=== PATIENT | female | born 1990 | race Caucasian/White ===

== ENCOUNTER 2021-01-03 10:03 | Emergency (ER) | payer OTHER ==
[~2021-01-03] VITALS: Ht 165.1 cm; Wt 75.8 kg
[2021-01-03 10:20] VITALS: BP 129/76
--- NOTE | 2021-01-03 10:31 | PHYS DOC ---
Past History Alcohol Use: None (LACEHLLE CARDENAS APRN) General Adult EDM: Chief Complaint: CHEST PAIN HPI: HPI: Patient is a 30-year-old female who presents to the ER today for chest pain. Chest pain started in October but worsened last night. Patient believes that chest pain was due to her control and so she had her control removed. She also thought maybe it was due to her hypothyroidism. She saw her asset card clerk and had a negative work-up. Location of her chest pain is substernal and radiates to her left breast. She describes the pain as an ache/palpitation. She rates the pain 6 out of 10. No alleviating or aggrav ating factors. Patient is also reporting mild lightheadedness. Patient denies shortness of breath, abdominal pain, cough, fevers. Her vital signs are stable and she is in no acute distress. (LACHELLE CARDENAS APRN) Review of Systems: Review of Systems: 14 body systems of the review of systems have been reviewed. See HPI for pertinent positive and negative responses, otherwise all other systems are negative, nonpertinent or noncontributory (LACHELLE CARDENAS APRN) Physical Exam: PE: Constitutional: Well developed, well nourished, no acute distress, non-toxic appearance. [] HENT: Normocephalic, atraumatic Eyes: PERRL, conjunctiva normal, no discharge. [] Neck: Normal range of motion, no stridor Cardiovascular:Heart rate regular rhythm, no murmur [] Lungs & Thorax: Bilateral breath sounds clear to auscultation [] Abdomen: Bowel sounds normal, soft, no tenderness, no masses, no pulsatile masses. [] Skin: Warm, dry, no erythema, no rash. [] Back: Normal range of motion Extremities: No tenderness, no cyanosis, no clubbing, ROM intact, no edema. [] Neurologic: Alert and oriented X 3, normal motor function, normal sensory function, no focal deficits noted. [] Psychologic: Affect normal, judgement normal, mood normal. [] (LACHELLE CARDENAS APRN) Current Patient Data: Labs: Laboratory Tests Test 01/03/21 10:57 White Blood Count 3.5 x10^3/uL Red Blood Count 4.39 x10^6/uL Hemoglobin 13.7 g/dL Hematocrit 40.1 % Mean Corpuscular Volume 91 fL Mean Corpuscular Hemoglobin 31 pg Mean Corpuscular Hemoglobin Concent 34 g/dL Red Cell Distribution Width 12.5 % Platelet Count 173 x10^3/uL Neutrophils (%) (Auto) 54 % Lymphocytes (%) (Auto) 36 % Monocytes (%) (Auto) 9 % Eosinophils (%) (Auto) 1 % Basophils (%) (Auto) 1 % Neutrophils # (Auto) 1.9 x10^3uL Lymphocytes # (Auto) 1.2 x10^3/uL Monocytes # (Auto) 0.3 x10^3/uL Eosinophils # (Auto) 0.0 x10^3/uL Basophils # (Auto) 0.0 x10^3/uL Sodium Level 142 mmol/L Potassium Level 4.0 mmol/L Chloride Level 106 mmol/L Carbon Dioxide Level 25 mmol/L Anion Gap 11 Blood Urea Nitrogen 7 mg/dL Creatinine 0.6 mg/dL Estimated GFR (Cockcroft-Gault) 117.4 BUN/Creatinine Ratio 12 Glucose Level 98 mg/dL Calcium Level 9.0 mg/dL Total Bilirubin 0.4 mg/dL Aspartate Amino Transf (AST/SGOT) 17 U/L Alanine Aminotransferase (ALT/SGPT) 25 U/L Alkaline Phosphatase 51 U/L Troponin I Quantitative < 0.017 ng/mL Total Protein 7.3 g/dL Albumin 4.0 g/dL Albumin/Globulin Ratio 1.2 (LACHELLE CARDENAS COMMERCIAL COUNSEL) EKG: EKG: EKG performed at 1007 by ER staff shows sinus rhythm, no STEMI as read by Dr. Cuellar at 1013. [] (LACHELLE CARDENAS COMMERCIAL COUNSEL) Radiology/Procedures: Radiology/Procedures: REASON: chest pain PROCEDURE: CHEST AP ONLY EXAM: Chest, single view. HISTORY: Pain. COMPARISON: None. FINDINGS: A frontal view of the chest is obtained. There is no infiltrate, pleural effusion or pneumothorax. The heart is normal in size. IMPRESSION: No acute pulmonary finding. Electronically signed by: Ricarda Hong MD (01/03/2021 10:40 AM) [id number] DICTATED AND SIGNED BY: RICARDA HONG MD DATE: 01/03/21 1040 CC: EMERGENCY,DEPARTMENT; SHAI MACHADO DO; LACHELLE CARDENAS APRN ~MTH0 0 [] (LACHELLE CARDENAS APRN) Heart Score: C/O Chest Pain: Yes HEART Score for Chest Pain: HEART Score for Chest Pain Response (Comments) Value History Slighlty/Non-Suspicious 0 ECG Normal 0 Age < 45 0 Risk Factors No Risk Factors 0 Troponin < Normal Limit 0 Total 0 Risk Factors: Risk Factors: DM, Current or recent (<one month) smoker, HTN, HLP, family history of CAD, obesity. Risk Scores: Score 0 - 3: 2.5% MACE over next 6 weeks - Discharge Home Score 4 - 6: 20.3% MACE over next 6 weeks - Admit for Clinical Observation Score 7 - 10: 72.7% MACE over next 6 weeks - Early Invasive Strategies (LACHELLE CARDENAS APRN) Course & Med Decision Making: Course & Med Decision Making Pertinent Labs and Imaging studies reviewed. (See chart for details) [] Patient is a 30-year-old female being seen in the ER today for chest pain. Work-up in the ER consisted of blood work, EKG chest x-ray. Work-up in the ER was unremarkable. Physical exam was reassuring. Heart score 0. I discussed with patient all findings and diagnostic testing as well as the need to follow- up with PCP for further evaluation and treatment or return to the ER if any new or worsening symptoms. Strict return precautions were also discussed at length. Patient voiced understanding and agreement with the plan. Patient is hemodynamically stable at the time of disposition. (LACHELLE CARDENAS APRN) Dragon Disclaimer: Dragon Disclaimer: This electronic medical record was generated, in whole or in part, using a voice recognition dictation system. (LACHELLE CARDENAS APRN) Attending Co-Sign The patient was seen and interviewed as well as examined at the bedside. The chart was reviewed. The case was discussed. Agree with the plan of care. (DARRELL CUELLAR DO) Departure Departure: Impression: Primary Impression: Chest pain Qualified Codes: R07.9 - Chest pain, unspecified Disposition: HOME / SELF CARE / HOMELESS Condition: GOOD Referrals: SHAI MACHADO DO (PCP) Patient Instructions: Chest Pain (Nonspecific) Additional Instructions: Thank you for choosing [facility] and allowing me to participate in your care. As we have discussed your findings do not indicate that you are having a cardiac event at this time. Please follow up with your primary care provider tomorrow regarding your ER visit. If your symptoms should worsen or you develop increased shortness of breath, chest pain, palpitations, dizziness, please return to the ER for reevaluation. LACHELLE CARDENAS APRN Jan 03, 2021 10:31 DARRELL CUELLAR DO Jan 04, 2021 06:29
--- NOTE | 2021-01-03 10:43 | RAD ---
EXAM: Chest, single view. HISTORY: Pain. COMPARISON: None. FINDINGS: A frontal view of the chest is obtained. There is no infiltrate, pleural effusion or pneumo thorax. The heart is normal in size. IMPRESSION: No acute pulmonary finding. Electronically signed by: Ricarda Rowe MD (01/03/2021 10:40 AM) [id number]
--- NOTE | 2021-01-03 10:55 | EKG ---
[address] [address] Test Date: 2021-01-03 Test Time: 10:07:25 Pat Name: YOLANDE PORTER Department: Room: Gender: F Engineer Assistant: SERGE : 1990 Requested By: LACHELLE CARDENAS Order Number: [id number] Reading MD: Measurements Intervals Medicine Bow Rate: 67 P: 47 IA: 130 QRS: 56 QRSD: 88 T: 35 QT: 384 QTc: 409 Interpretive Statements SINUS RHYTHM NO SPECIFIC ECG ABNORMALITIES RI6.02 No previous ECG available for comparison
[2021-01-03 11:13] LABS: BASO % 1 % (0-3); EOS % 1 % (0-3); HEMATOCRIT 40.1 % (36.0-47.0); HEMOGLOBIN 13.7 g/dL (12.0-15.5); LYMPH # 1.2 x10^3/uL (1.0-4.8); LYMPH % 36 % (24-48); MEAN CORPUSCULAR HEMOGLOBIN 31 pg (25-35); MEAN CORPUSCULAR HGB CONC 34 g/dL (31-37); MEAN CORPUSCULAR VOLUME 91 fL (79-100); MONO # 0.3 x10^3/uL (0.0-1.1); MONO % 9 % (0-9); NEUT # 1.9 x10^3uL (1.8-7.7); NEUT % 54 % (31-73); PLATELET COUNT 173 x10^3/uL (140-400); RED BLOOD COUNT 4.39 x10^6/uL (3.50-5.40); RED CELL DISTRIBUTION WIDTH 12.5 % (11.5-14.5); WHITE BLOOD COUNT 3.5 x10^3/uL (4.0-11.0)
[2021-01-03 11:24] LABS: CREATININE 0.6 mg/dL (0.6-1.0); GFR 117.4
[2021-01-03 11:30] LABS: ALBUMIN/GLOBULIN RATIO 1.2 (1.0-1.7); TOTAL BILIRUBIN 0.4 mg/dL (0.2-1.0); TOTAL PROTEIN 7.3 g/dL (6.4-8.2)
== END 2021-01-03 12:39 | disposition home or self-care (01) ==
LOC: ER 10:03
DX: R07.2 Precordial pain (principal); R42 Dizziness and giddiness
CPT/HCPCS: 36415; 71045; 80053; 84484; 85025; 93005; 99285